=== PATIENT | female | born 1985 | race Caucasian/White ===

== ENCOUNTER 2018-08-16 15:12 | Emergency (ER) ==
[2018-08-16 15:28] VITALS: BP 124/76; TEMP 98.4; BMI 22.3
[2018-08-16] MEDS ORDERED: SODIUM CHLORIDE 1,000 ML IV STA (19:14)
[2018-08-16] MEDS ORDERED: PROTONIX IV IVP STA (19:21)
--- NOTE | 2018-08-16 19:21 | ED.PDOC ---
General ED Provider: Dr. RADHA SIEGEL Chief Complaint: Abdominal Pain Stated Complaint: Patient is a healthy 32 year old female who comes to the ER with C/O "heart burn " all day yesterday. She describes the pain as a burning sensation at mid abd radiating to the chest. She went to the clinic today and had some tenderness to palpation on the right lower quadrant. Was sent here to have an EKG. Took TUMS but has not had much relief. Time Seen by Physician: 19:20 Mode of Arrival: Walk-In Information Source: Patient Nursing and Triage Documentation Reviewed and Agree: Yes Does patient meet sepsis criteria?: No System Inflammatory Response Syndrome: Not Applicable Sepsis Protocol: For patient's 13 years and over: Temp is 96.8 and below OR 101 and greater Pulse >90 BPM Resp >20/minute Acutely Altered Mental Status Are patient's symptoms suggestive of a new infection, such as: -Pneumonia -Skin, Soft Tissue -Endocarditis -UTI -Bone, Joint Infection -Implantable Device -Acute Abdominal Infection -Wound Infection -Meningitis -Blood Stream Catheter Infection -Unknown Review of Systems - Review Of Systems Constitutional: Reports: No symptoms Eyes: Reports: No symptoms Ears, Nose, Mouth, Throat: Reports: No symptoms Respiratory: Reports: No symptoms Cardiac: Reports: No symptoms GI: Reports: Abdominal pain. Denies: Nausea : Reports: No symptoms Musculoskeletal: Reports: No symptoms Skin: Reports: No symptoms Neurological: Reports: Anxiety Endocrine: Reports: No symptoms Hematologic/Lymphatic: Reports: No symptoms All Other Systems: Reviewed and Negative Past Medical History - Past Medical History Previously Healthy: Yes Endocrine: Reports: Dyslipidemia Cardiovascular: Reports: None Respiratory: Reports: None Hematological: Reports: None Gastrointestinal: Reports: None Genitourinary: Reports: Kidney stones Neuro/Psych: Reports: None Musculoskeletal: Reports: None Cancer: Reports: None Last Menstrual Period: 2 weeks - Surgical History General Surgical History: Reports: None - Family History Family History: Reports: None - Social History Smoking Status: Never smoker Hx Substance Use: No Alcohol Screening: Occasionally Lives: Alone Physical Exam - Physical Exam Appearance: Ill-appearing Ill-appearing: Mild Pain Distress: Mild Eyes: MIRELLA, EOMI, Conjunctiva clear ENT: Ears normal, Nose normal, Oropharynx normal Respiratory: Airway patent, Breath sounds clear, Breath sounds equal, Respirations nonlabored Cardiovascular: RRR, Pulses normal, No rub, No murmur GI/: Tender (Right lower quadrant ) Musculoskeletal: Normal strength, ROM intact, No edema, No calf tenderness Skin: Warm, Dry, Normal color Neurological: Sensation intact, Motor intact, Reflexes intact, Cranial nerves intact, Alert, Oriented Psychiatric: Affect appropriate, Mood appropriate Interpretation - Radiology Interpretation Radiology Interpretation By: Radiologist Radiology Results: Positive (4mm Kidney stone on the left kidney otherwise normal) Exam Interpreted: CT Scan - EKG Interpretation Time of EKG #1: 19:56 Rate: Normal Rhythm: Sinus Ectopy: None Dittmer: NL ST Segment: Normal Interpretation: Normal EKG Critical Care Note - Critical Care Note Total Time (mins): 0 Course - Course Hematology/Chemistry: 08/16/18 19:34 08/16/18 19:34 Orders, Labs, Meds: Lab Review 08/16/18 08/16/18 08/16/18 19:15 19:30 19:34 WBC 8.64 RBC 4.21 Hgb 13.6 Hct 39.3 MCV 93.3 MCH 32.3 H MCHC 34.6 RDW Coeff of Iain 11.9 Plt Count 203 Immature Gran % (Auto) 0.1 Neut % (Auto) 56.7 Lymph % (Auto) 31.9 [place] % (Auto) 7.4 Eos % (Auto) 3.2 Baso % (Auto) 0.7 Immature Gran # (Auto) 0.0 Neut # (Auto) 4.9 Lymph # (Auto) 2.8 [place] # (Auto) 0.6 Eos # (Auto) 0.3 Baso # (Auto) 0.1 Sodium Potassium Chloride Carbon Dioxide Anion Gap BUN Creatinine Estimated GFR (MDRD) BUN/Creatinine Ratio Glucose Calcium Total Bilirubin AST ALT Alkaline Phosphatase Total Creatine Kinase 185.5 H CK-MB (CK-2) 2.090 CK-MB (CK-2) % 1.1200 Troponin I < 0.012 Total Protein Albumin Globulin Albumin/Globulin Ratio Amylase Lipase Serum , Qual Urine Color Yellow Urine Clarity Slightly Urine pH 7.0 Ur Specific Nichols 1.020 Urine Protein Negative Urine Glucose (UA) Negative Urine Ketones 1+ Urine Blood Trace-intact Urine Nitrite Negative Urine Bilirubin Negative Urine Urobilinogen 0.2 Ur Leukocyte Esterase Negative Urine Microscopic RBC 2-5 Ur Squamous Epith Cells 10-20 Amorphous Sediment Trace 08/16/18 08/16/18 19:34 19:34 WBC RBC Hgb Hct MCV MCH MCHC RDW Coeff of Iain Plt Count Immature Gran % (Auto) Neut % (Auto) Lymph % (Auto) [place] % (Auto) Eos % (Auto) Baso % (Auto) Immature Gran # (Auto) Neut # (Auto) Lymph # (Auto) [place] # (Auto) Eos # (Auto) Baso # (Auto) Sodium 138.5 Potassium 3.48 L Chloride 102.3 Carbon Dioxide 25.7 Anion Gap 13.98 BUN 9.0 Creatinine 0.43 L Estimated GFR (MDRD) 168.00 BUN/Creatinine Ratio 20.93 Glucose 83.2 Calcium 9.38 Total Bilirubin 0.32 AST 42.2 H ALT 36.0 H Alkaline Phosphatase 68.6 Total Creatine Kinase CK-MB (CK-2) CK-MB (CK-2) % Troponin I Total Protein 7.87 Albumin 4.69 Globulin 3.18 Albumin/Globulin Ratio 1.47 Amylase 108.0 Lipase 76.6 Serum , Qual Negative Urine Color Urine Clarity Urine pH Ur Specific [place] Urine Protein Urine Glucose (UA) Urine Ketones Urine Blood Urine Nitrite Urine Bilirubin Urine Urobilinogen Ur Leukocyte Esterase Urine Microscopic RBC Ur Squamous Epith Cells Amorphous Sediment Orders Category Date Time Status EKG-(ED ONLY) Stat CARDIO 08/16/18 19:43 Completed ED IV/MEDIPORT/POWERPORT .ONCE EMERGENCY 08/16/18 19:14 Active AMYLASE Stat LAB 08/16/18 19:34 Completed CBC W/ AUTO DIFF Stat LAB 08/16/18 19:34 Completed COMPREHENSIVE METABOLIC PANEL Stat LAB 08/16/18 19:34 Completed CPK [CREATINE KINASE] Stat LAB 08/16/18 19:30 Completed HCG QUALITATIVE [SERUM ] Stat LAB 08/16/18 19:34 Completed LIPASE Stat LAB 08/16/18 19:34 Completed TROPONIN I Stat LAB 08/16/18 19:30 Completed URINALYSIS C & S IF INDICATED Stat LAB 08/16/18 19:15 Completed 0.9 % Sodium Chloride [Saline Flush] MEDS 08/16/18 19:14 Discontinued 1 syr IVF PRN PRN Pantoprazole Sodium [Protonix IV] MEDS 08/16/18 19:21 Discontinued 40 mg IVP ONCE STA Sodium Chloride 0.9% [Sodium Chloride] 1,000 ml MEDS 08/16/18 19:[address] ABD/PEL WO RENAL STONE PROT Stat RADS 08/16/18 19:14 Completed Medications Discontinued Medications Generic Name Dose Route Start Last Admin Trade Name Freq PRN Reason Stop Dose Admin Sodium Chloride 1,000 mls @ 1,000 mls/hr 08/16/18 19:14 08/16/18 19:38 Sodium Chloride IV 08/16/18 20:13 1,000 mls/hr BOLUS STA Administration Pantoprazole Sodium 40 mg 08/16/18 19:21 08/16/18 19:37 Protonix Iv IVP 08/16/18 19:22 40 mg ONCE STA Administration Sodium Chloride 1 syr 08/16/18 19:14 08/16/18 19:38 Saline Flush IVF 1 syr PRN PRN Administration To flush IV Vital Signs: Temp Pulse Resp BP Pulse Ox 08/16/18 15:13 98.4 F 71 18 124/76 98 Departure - Departure Time of Disposition: 20:35 Disposition: HOME SELF-CARE Discharge Problem: Abdominal pain, GERD with esophagitis Instructions: Gastroesophageal Reflux Disease (ED) Condition: Fair Pt referred to PMD for follow-up: Yes IPMP verified?: No Additional Instructions: take Medications as needed for pain Take Protonix daily for at least 30 days Follow up with PCP in 3 days Prescriptions: Dicyclomine HCl [Bentyl] 10 mg PO TID PRN #20 capsule PRN Reason: Abdominal Pain Pantoprazole Sodium [Protonix] 40 mg PO QDAC #30 tablet. Tramadol HCl [Ultram] 50 mg PO Q6H PRN #7 tablet PRN Reason: Severe Pain Allergies/Adverse Reactions: Allergies No Known Drug Allergies Allergy (Verified 08/16/18 15:21) Home Medications: Ambulatory Orders Calcium Carbonate/Vitamin D3 [Caltrate 600 Plus D3 Tablet] 1 each PO DAILY 08/16 Dicyclomine HCl [Bentyl] 10 mg PO TID PRN #20 capsule 08/16/18 Krill Oil 500 mg PO DAILY 08/16/18 Pantoprazole Sodium [Protonix] 40 mg PO QDAC #30 tablet. 08/16/18 Tramadol HCl [Ultram] 50 mg PO Q6H PRN #7 tablet 08/16/18 Disposition Discussed With: Patient
--- NOTE | 2018-08-16 20:27 | CT ---
Exam: CT of the abdomen and pelvis without contrast History: Right lower quadrant pain Technique: [address] of the abdomen and pelvis without intravascular contrast FINDINGS: The lung bases are clear. No significant liver abnormality. The adrenals, pancreas and s pleen are unremarkable. The stomach and hiatus are unremarkable.The gallbladder appears normal. The re is a single 4 mm nonobstructing calculus in the left kidney. The kidneys and collecting system ar e unremarkable otherwise. The appendix is normal. Bowel loops demonstrate normal caliber. No infla matory change seen in the mesentery or retroperitoneum. Vascular structures appear normal by noncont rast CT. Pelvic genitourinary structures appear normal. Pelvic bowel loops are unremarkable. No inflammatory change in the pelvic fat. No acute abnormality of the abdominal or pelvic skeleton. Impression: 1. No inflammatory process, bowel or urinary obstruction is seen. 2. Single nonobstructing calculus in the left kidney
== END 2018-08-16 20:45 | disposition home or self-care (01) ==
LOC: ED 15:12
DX: K21.0 Gastro-esophageal reflux disease with esophagitis (principal); E78.5 Hyperlipidemia, unspecified; Z87.442 Personal history of urinary calculi
CPT/HCPCS: 36415; 74176; 80053; 81001; 82150; 82550; 82553; 83690; 84484; 84703; 85025; 93005; 93010; 96361; 96374; 99283

== ENCOUNTER 2018-09-01 12:34 | Outpatient (CLI) | END 2018-09-01 12:35 | disposition home or self-care (01) | LOC: RHC-LAB 12:34 | PROVIDERS: ATTEND General Practice | DX: R94.5 Abnormal results of liver function studies (principal) | CPT/HCPCS: 36415; 80053 ==

== ENCOUNTER 2018-11-30 13:07 | Outpatient (CLI) | END 2018-11-30 13:08 | disposition home or self-care (01) | LOC: RHC-LAB 13:07 | PROVIDERS: ATTEND General Practice | DX: Z09 Encounter for follow-up examination after completed treatment for conditions other than malignant neoplasm (principal); E86.0 Dehydration; E87.6 Hypokalemia | CPT/HCPCS: 36415; 80053; 80061; 81001; 84443; 85025 ==